=== PATIENT | female | born 1965 | race Caucasian/White ===

== ENCOUNTER → 2017-01-18 | Outpatient (CLI) | payer BC ==
--- NOTE | ~2017-01-18 | MY11 ---
[facility] A Service of [facility] RADIOLOGY TEXT RESULTS PATIENT: BLANE ADAMS LOCATION: [facility] : 63 UNIT #: [id number] AGE: [address]: PIPER DOWELL MD SEX: F ORDER DR: [id number] [address] [address] [id number] O MR#: [id number] Acc #: [id number] NAME: BLANE ADAMS : 1965 SEX: F STUDY DATE/TIME: 01/18/2017 16:08 UNIT: [facility] ROOM: STUDY DESCRIPTION: MY Mammogram Screening Dig Chava Attending Physician: Emmy Dowell M.D. Referring Physician: Emmy Dowell M.D. Ordering Physician: Emmy Dowell M.D. Primary Care Physician: Karyna Oliveira M.D. MEDICAL IMAGING REPORT This report is preliminary unless electronic signature is present. EXAM Bilateral digital screening mammogram with CAD device, 01/18/2017 HISTORY Baseline mammogram FINDINGS Bilateral digital screening mammogram was performed in craniocaudal and mediolateral oblique projections demonstrating moderately dense fibroglandular tissue. In the upper-outer quadrant of the right breast there are 2 nodular asymmetries measuring 1.9 cm and 1.2 cm respectively. Spot compression of both lesions is recommended for further evaluation. If the finding persists following spot compression, recommend ultrasound for characterization. No suspicious cluster of microcalcifications was seen. The films have been reviewed by an FDA-approved CAD device. IMPRESSION Two nodular asymmetries in the upper outer quadrant of the right breast with no prior mammogram for comparison. Recommend spot compression for further evaluation. If the finding persists following spot compression, recommend ultrasound for characterization. Patients over the age of 40 are entered into a reminder system with target due date for the next mammogram. A result letter will also be sent to the patient. BIRADS 0 Incomplete: Need Additional Imaging Evaluation and/or Prior Mammograms for Comparison Dictated by... [facility] A Service of [facility] RADIOLOGY TEXT RESULTS PATIENT: BLANE ADAMS LOCATION: [facility] : 63 UNIT #: [id number] AGE: [address]: PIPER DOWELL MD SEX: F ORDER DR: Oneil Fernandez M.D. THIS IS AN ELECTRONICALLY VERIFIED REPORT Oneil Fernandez M.D. at 01/22/2017 7:44 AM DUKE/jade TD: 01/21/2017 09:28 JOB #: [id number] MEDICAL IMAGING REPORT Page 1 of 1
== END | disposition home or self-care (01) ==
LOC: SMAM 15:35
DX: Z12.31 Encounter for screening mammogram for malignant neoplasm of breast (principal)
CPT/HCPCS: G0202

== ENCOUNTER → 2017-03-12 | Outpatient (CLI) | payer BC ==
--- NOTE | ~2017-03-12 | US24 ---
[facility] A Service of [facility] RADIOLOGY TEXT RESULTS PATIENT: BLANE ADAMS LOCATION: [facility] : 63 UNIT #: [id number] AGE: [address]: Catherine Briggs APRN SEX: F ORDER DR: [id number] [facility] [address] [place], [place] [address] [id number] O MR#: [id number] Acc #: [id number] NAME: BLANE ADAMS : 1965 SEX: F STUDY DATE/TIME: 03/12/2017 13:00 UNIT: [facility] ROOM: STUDY DESCRIPTION: US Breast Unilateral Attending Physician: Catherine Briggs A.P.R.N. Referring Physician: Emmy Butcher M.D. Ordering Physician: Catherine Briggs A.P.R.N. Primary Care Physician: Karyna Oliveira M.D. MEDICAL IMAGING REPORT This report is preliminary unless electronic signature is present EXAM Ultrasound of the right breast on 03/12. INDICATION Abnormal baseline screening mammogram showing 2 densities in the right breast. Positive family history of breast cancer in patient's mother. FINDINGS For a full report, please see the mammogram report dated 03/12/17. Patients over the age of 40 are entered into a reminder system with target due date for the next mammogram. A result letter will also be sent to the patient. BIRADS: 4 Suspicious abnormality; biopsy should be considered. Dictated by... Narciso Patel Jr., M.D. THIS IS AN ELECTRONICALLY VERIFIED REPORT Narciso Patel Jr., M.D. at 03/13/2017 10:17 AM JAI/elle TD: 03/12/2017 18:13 JOB #: [id number] MEDICAL IMAGING REPORT Page 1 of 1 COPY
--- NOTE | ~2017-03-12 | MY8 ---
[facility] A Service of [facility] RADIOLOGY TEXT RESULTS PATIENT: BLANE ADAMS LOCATION: [facility] : 63 UNIT #: [id number] AGE: [address]: Catherine Briggs APRN SEX: F ORDER DR: [id number] [facility] [address] [place], [place] [address] [id number] O MR#: [id number] Acc #: [id number] NAME: BLANE ADAMS : 1965 SEX: F STUDY DATE/TIME: 03/12/2017 12:28 UNIT: [facility] ROOM: STUDY DESCRIPTION: MY Mammogram Dx Dig Rt Attending Physician: Catherine Briggs A.P.R.N. Referring Physician: Gita Butcher Ordering Physician: Catherine Briggs A.P.R.N. Primary Care Physician: Karyna Oliveira M.D. MEDICAL IMAGING REPORT This report is preliminary unless electronic signature is present EXAM Diagnostic right mammogram 03/12 INDICATIONS Early recall imaging for two densities seen in the right breast on baseline screening mammogram. Positive family history of breast cancer in mother. FINDINGS Exaggerated right CC view and right true lateral view were obtained. Spot compression CC and MLO views were obtained. Magnification CC and MLO views were obtained. COMPARISON: Comparison is made with 01/18/2017. Study is reviewed with an FDA-approved CAD device. The spot views demonstrate persistent poorly defined nodular density in about the 7 o'clock to 8 o'clock position of the right breast. Additionally, in the upper outer deep right breast, there is some asymmetrically dense prominent fibroglandular tissue. Additionally, magnification views demonstrate multiple calcifications in the anterior right breast predominantly in the upper outer quadrant. While these are probably benign calcifications, a discussion was had with the patient. Given the positive family of breast cancer in mother, the patient would like to have these biopsied stereotactically rather than followed and 6-month intervals. Ultrasound of the right breast was subsequently performed today. Ultrasound demonstrates what appears to be a complicated cyst at the 7 o'clock position about 3 cm from the nipple. This measures up to 1.8 x 1.4 x 1.1 cm. This has internal echogenic debris and ultrasound guided STS. [facility] A Service of [facility] RADIOLOGY TEXT RESULTS PATIENT: BLANE ADAMS LOCATION: [facility] : 63 UNIT #: [id number] AGE: [address]: Catherine Briggs APRN SEX: F ORDER DR: cyst aspiration is recommended. There is a smaller 3 mm cyst in the right breast at the 8 o'clock position 6 cm from the nipple. At the 10 o'clock position of the right breast 4 cm from the nipple, there is a more irregular hypoechoic lesion measuring 10 x 4 x 11 mm in size. I believe this corresponds to the mammographic finding as well. This is indeterminate and ultrasound-guided core biopsy is recommended. All these findings and recommendations were discussed directly with the patient at the time of her examination today. Additionally, this was discussed with Kelsi in the breast advocates office for physician notification purposes. IMPRESSION 1. There are 2 lesions seen sonographically, 1 is probably a complicated cyst, and the other was indeterminate. Ultrasound guided cyst aspiration is recommended in addition to ultrasound-guided core biopsy of the indeterminate lesion. These could be performed on the same day. 2. Technically indeterminate calcifications in the anterior right breast. Stereotactic biopsy of these calcifications is recommended. This should be performed on a different day. Patients over the age of 40 are entered into a reminder system with target due date for the next mammogram. A result letter will also be sent to the patient. BIRADS: 4 - Suspicious abnormality. Biopsy should be considered. Dictated by... Narciso Patel Jr., M.D. THIS IS AN ELECTRONICALLY VERIFIED REPORT Narciso Patel Jr., M.D. at 03/12/2017 4:24 PM JAI/janusz TD: 03/12/2017 13:45 JOB #: [id number] MEDICAL IMAGING REPORT Page 1 of 1 COPY
== END | disposition home or self-care (01) ==
LOC: CMAM 12:04
DX: R92.8 Other abnormal and inconclusive findings on diagnostic imaging of breast (principal)
CPT/HCPCS: 76641; G0206